=== PATIENT | female | born 1970 | race Caucasian/White ===

== ENCOUNTER 2016-10-06 10:43 | Inpatient (IN) | payer OTHER ==
[~2016-10-06] VITALS: Ht 162.6 cm; Wt 59.0 kg
--- NOTE | ~2016-10-06 | H ---
[facility] [place] [address] [place] [address] HISTORY AND PHYSICAL Name: TOMI LAUGHLIN Room #: 435-P [facility] IN M.R.#: [id number] Admission: 10/06/16 Attend Phys: Serjio Damon MD Discharge: 10/07/16 Date of : 70 Report #: [id number] THIS REPORT FOR: //name// CC: SHAHNAZ physician/PCP Serjio Damon DATE OF SERVICE: 10/06/2016 CHIEF COMPLAINT: Alcoholism, alcohol withdrawal. HISTORY OF PRESENT ILLNESS: The patient is a 46-year-old alcoholic female, with no major health problems, who comes to the hospital with alcohol withdrawal symptoms. The patient states that she is trying to quit. Her last drink was yesterday, and alcohol level is still over 200. The patient has mild tremors, and mild palpitations. The patient has been hospitalized several times for alcohol withdrawal before, most recently a few months ago. She denies alcohol-related seizures. The patient has been hemodynamically stable in the Emergency Room. She is found to have urinary tract infection. Her drug screen has been negative. Otherwise, her evaluation was unremarkable. PAST MEDICAL HISTORY: 1. Alcoholism as above. 2. History of acute pancreatitis. CURRENT MEDICATIONS: None. FAMILY HISTORY: Reviewed and not pertinent to the patient's current condition. SOCIAL HISTORY: The patient lives by herself. She drinks alcohol, mostly whiskey. She occasionally drinks alcohol. She denies illicit drug use. REVIEW OF SYSTEMS: As above in HPI section. All others negative. PHYSICAL EXAMINATION: GENERAL: The patient is a young female, who looks anxious now. VITAL SIGNS: Blood pressure is 129/74, heart rate is , respirations 14 and temperature is reported febrile. HEENT: Pupils are equal. Eye movements are normal. Sclerae are anicteric. Oral mucosa is moist. Ear examination is deferred. The patient is bruised on the right face, as a result of a fall. RESPIRATORY: Chest moves symmetrically with breathing. Respiratory sounds are normal. CARDIOVASCULAR: The patient has regular rhythm and rate. She has no murmurs, gallops or rubs. [facility] [address] [place] [address] HISTORY AND PHYSICAL Name: TOMI LAUGHLIN Room #: 435-P [facility] IN ..#: [id number] Admission: 10/06/16 Attend Phys: Serjio Damon MD Discharge: 10/07/16 Date of : 70 Report #: [id number] GASTROINTESTINAL: Abdomen is soft, nondistended and nontender. Bowel sounds are present. The patient has no hepatomegaly or splenomegaly. MUSCULOSKELETAL:. Range of motion is normal. EXTREMITIES: She has no edema, cyanosis or clubbing. NEUROLOGIC: The patient is alert and oriented x 3. Her examination is nonfocal. The patient has mild tremors in the hands. SKIN: Reveals no skin lesions, except the facial bruising. LABORATORY DATA: CBC is unremarkable except for the platelet levels of 89. Metabolic profile is essentially normal. Alcohol level is 221. ASSESSMENT AND PLAN: 1. Chronic alcoholism, in pending alcohol withdrawal. The patient will be placed on the alcohol withdrawal protocol, and she will be monitored closely. 2. Urinary tract infection. The patient will be treated with Rocephin. Urine culture will be submitted. 3. Deep venous thrombosis prophylaxis. We will use sequential compression devices. <ELECTRONICALLY SIGNED> By: Serjio Damon MD 10/10/162031 171 11 Sejrio Damon MD /nt
--- NOTE | ~2016-10-06 | D ---
[facility] [place] [address] [place] [address] DISCHARGE SUMMARY Name: TOMI LAUGHLIN Room #: 435-P [facility] IN M.R.#: [id number] Admission: 10/06/16 Attend Phys: Serjio Damon MD Discharge: 10/07/16 Date of : 70 Report #: [id number] THIS REPORT FOR: //name// CC: SHAHNAZ physician/PCP Serjio Damon DATE OF SERVICE: 10/07/2016 The patient left AMA on 10/07/2016. HOSPITAL COURSE: The patient is a 46-year-old female who was admitted to the hospital for alcohol withdrawal. Please refer to the H and P for details. Before I made rounds today, I was notified by nursing staff that the patient left AMA. The patient has been alert, awake and oriented times 3, and she is well aware of the complications related to alcoholism and alcohol withdrawal. <ELECTRONICALLY SIGNED> By: Serjio Damon MD 10/10/16 2032 [id number] [id number] Serjio Damon MD /nt
[~2016-10-06 10:43] MED LIST: ABILIFY10 MG PO; ATIVAN0.5 MG PO; BACTRIM DS TAB1 EACH PO; BARACLUDE0.5 MG; CHLORDIAZEPO-A1 EACH PO; CHLORDIAZEPOXID10 MG PO; CIPRO500 MG PO; CIPROFLOXACIN500 M1 PO; DESYREL50 MG PO; KLOR-CON 1010 MEQ PO; MIRALAX17 GM PO; ONDANSETRON HCL4 M2 PO; PHENERGAN 25 MG25 M1 PO; POTASSIUM20 PO; PRISTIQ50 M1 PO; REVIA 50 MG TAB50 M1; SENNA S TABLET1 EACH PO; SLOW-MAG64 MG PO; ZOFRAN ODT4 MG PO
[2016-10-06 11:15] LABS: ABSOLUTE NEUTROPHILS 4.9 thou/uL (1.4-8.2); BASOPHILS 0.8 % (0.0-2.0); EOSINOPHILS 0.1 % (0.0-3.0); HEMATOCRIT 41.3 % (37.0-47.0); HEMOGLOBIN 14.3 gm/dL (12.0-15.0); LYMPHOCYTES 29.3 % (24.0-44.0); MCH 33.1 pg (26.0-34.0); MCHC 34.6 % (28.0-37.0); MCV 95.6 fL (80.0-100.0); MONOCYTES 4.4 % (1.0-8.0); POLYS 65.4 % (36.0-66.0); RBC 4.32 mil/uL (4.20-5.00); RDW 15.8 % (10.5-14.5); WBC 7.4 thou/uL (4.0-11.0)
[2016-10-06 11:19] LABS: ANION GAP 22 mmol/L (7-16); BUN 12 mg/dL (7-18); CALCIUM 8.6 mg/dL (8.5-10.1); CHLORIDE 92 mmol/L (98-107); CO2 21 mmol/L (21-32); CREATININE 0.9 mg/dL (0.6-1.3); GLUCOSE 73 mg/dL (70-99); MANUAL DIFF NO; POTASSIUM 4.1 mmol/L (3.5-5.1); SODIUM 135 mmol/L (136-145)
[2016-10-06 11:25] LABS: ALBUMIN 3.9 g/dL (3.4-5.0); ALKALINE PHOSPHATASE 55 U/L (46-116); SALICYLATE 3.8 mg/dL (2.8-20.0); SGOT 151 U/L (15-37); SGPT 56 U/L (30-65); TOTAL BILIRUBIN 0.9 mg/dL (<0.1-1.0); TOTAL PROTEIN 7.2 g/dL (6.4-8.2)
[2016-10-06 11:28] LABS: ACETAMINOPHEN < 2 ug/mL (10-30)
[2016-10-06 11:33] LABS: PLATELET COUNT 89 thou/uL (150-400); PLATELET ESTIMATE SLIGHTLY DECREASED
[2016-10-06 11:34] LABS: LARGE PLATELETS OCCASIONAL
[2016-10-06 12:34] LABS: URINE BLOOD 2+ (Negative); URINE COLOR YELLOW; URINE GLUCOSE-RANDOM* NEGATIVE (Negative); URINE KETONES 2+ (Negative); URINE NITRITE NEGATIVE (Negative); URINE PROTEIN (DIPSTICK) 1+ (Negative); URINE SPECIFIC GRAVITY 1.025 (1.003-1.035); URINE UROBILINOGEN 0.2 E.U./dl (0.2-1.0)
[2016-10-06 12:38] LABS: ICTOTEST (BILI CONFIRMATORY) Negative (Negative); URINE BILIRUBIN NEGATIVE (Negative)
[2016-10-06 12:46] LABS: BACTERIA 1-9 Few /HPF (None Seen); CASTS None Seen /LPF (None Seen); CRYSTALS None Seen /LPF (None Seen); SQUAMOUS 0-3 Few /LPF (0-3); URINE RBC 3-10 Few /HPF (0-2); URINE WBC None Seen /HPF (0-5)
[2016-10-06 12:47] LABS: AMP/METHAMP Negative (Negative); BARBITURATES Negative (Negative); BENZODIAZEPINES Negative (Negative); COCAINE Negative (Negative); METHADONE Negative (Negative); OPIATES Negative (Negative); PCP Negative (Negative); THC Negative (Negative)
[2016-10-06 15:53] VITALS: BP 129/74
[2016-10-06 16:45] VITALS: BP 124/67
[2016-10-06 19:14] VITALS: BP 112/63
[2016-10-07 00:10] VITALS: BP 116/72
[2016-10-07 02:56] VITALS: BP 126/72
[2016-10-07 04:02] LABS: ABSOLUTE NEUTROPHILS 5.3 thou/uL (1.4-8.2); BASOPHILS 0.4 % (0.0-2.0); EOSINOPHILS 0.3 % (0.0-3.0); HEMATOCRIT 33.8 % (37.0-47.0); LYMPHOCYTES 24.7 % (24.0-44.0); MCH 33.1 pg (26.0-34.0); MCV 97.3 fL (80.0-100.0); MONOCYTES 5.4 % (1.0-8.0); POLYS 69.2 % (36.0-66.0); RBC 3.48 mil/uL (4.20-5.00); RDW 15.1 % (10.5-14.5); WBC 7.6 thou/uL (4.0-11.0)
[2016-10-07 04:09] LABS: HEMOGLOBIN 11.5 gm/dL (12.0-15.0)
[2016-10-07 04:10] LABS: MANUAL DIFF NO
[2016-10-07 04:14] LABS: CALCIUM 8.4 mg/dL (8.5-10.1); CREATININE 0.7 mg/dL (0.6-1.3)
[2016-10-07 04:23] LABS: POTASSIUM 2.9 mmol/L (3.5-5.1)
[2016-10-07 04:58] LABS: PLATELET COUNT 57 thou/uL (150-400); PLATELET ESTIMATE DECREASED
== END 2016-10-07 09:07 | disposition left against medical advice (07) | DRG 894 ==
LOC: ER 10:43 → EROBS 13:11 → 4S 15:56
PROVIDERS: Emergency Medicine; Internal Medicine Endocrinology, Diabetes & Metabolism
DX: F10.239 Alcohol dependence with withdrawal, unspecified (principal); N39.0 Urinary tract infection, site not specified; F17.210 Nicotine dependence, cigarettes, uncomplicated; Y90.7 Blood alcohol level of 200-239 mg/100 ml; Z88.6 Allergy status to analgesic agent; Z90.49 Acquired absence of other specified parts of digestive tract
CPT/HCPCS: 10195

== ENCOUNTER 2017-01-28 12:26 | Inpatient (IN) | payer OTHER ==
[~2017-01-28] VITALS: Ht 162.6 cm; Wt 46.5 kg
[2017-01-28 12:26] VITALS: BP 136/89
[2017-01-28 13:18] LABS: ABSOLUTE NEUTROPHILS 2.8 thou/uL (1.4-8.2); BASOPHILS 1.4 % (0.0-2.0); EOSINOPHILS 0.2 % (0.0-3.0); HEMATOCRIT 38.9 % (37.0-47.0); HEMOGLOBIN 13.1 gm/dL (12.0-15.0); LYMPHOCYTES 18.2 % (24.0-44.0); MCHC 33.5 g/dL (28.0-37.0); MCV 98.5 fL (80.0-100.0); MONOCYTES 6.9 % (1.0-8.0); POLYS 73.3 % (36.0-66.0); RBC 3.95 mil/uL (4.20-5.00); RDW 20.7 % (10.5-14.5); WBC 3.9 thou/uL (4.0-11.0)
[2017-01-28 13:19] LABS: MANUAL DIFF NO
[2017-01-28 13:47] LABS: PLATELET COUNT 62 thou/uL (150-400)
[2017-01-28 14:50] LABS: CREATININE 0.5 mg/dL (0.6-1.0)
[2017-01-28 14:53] LABS: MAGNESIUM 0.9 mg/dL (1.8-2.4); POTASSIUM 2.9 mmol/L (3.5-5.1)
[2017-01-28 16:34] LABS: AMP/METHAMP Negative (Negative); BARBITURATES Negative (Negative); BENZODIAZEPINES Negative (Negative); COCAINE Negative (Negative); METHADONE Negative (Negative); OPIATES Negative (Negative); PCP Negative (Negative); THC Negative (Negative)
[2017-01-28 17:44] VITALS: BP 144/74
[2017-01-28 18:11] VITALS: BP 136/86
[2017-01-28 19:55] VITALS: BP 153/81
[2017-01-28 21:06] LABS: FREE T4 0.93 ng/dL (0.82-1.77)
[2017-01-28 23:35] VITALS: BP 121/87
[2017-01-29 04:25] VITALS: BP 141/91
[2017-01-29 06:15] LABS: CALCIUM 8.5 mg/dL (8.5-10.1); CREATININE 0.6 mg/dL (0.6-1.0); POTASSIUM 3.4 mmol/L (3.5-5.1)
[2017-01-29 06:20] LABS: ALBUMIN 3.5 g/dL (3.4-5.0); MAGNESIUM 1.6 mg/dL (1.8-2.4); TOTAL BILIRUBIN 1.1 mg/dL (<0.1-1.0); TOTAL PROTEIN 6.4 g/dL (6.4-8.2)
[2017-01-29 08:13] VITALS: BP 125/83
[2017-01-29 16:53] VITALS: BP 130/75
[2017-01-29 19:55] VITALS: BP 145/107
[2017-01-30 04:48] VITALS: BP 158/111
[2017-01-30 07:44] VITALS: BP 149/102
== END 2017-01-30 08:14 | disposition left against medical advice (07) | DRG 894 ==
LOC: ER 12:26 → 4W 15:11 → EROBS 15:11 → 4W 17:51
PROVIDERS: Emergency Medicine; Hospitalist
DX: F10.239 Alcohol dependence with withdrawal, unspecified (principal); E43 Unspecified severe protein-calorie malnutrition; K76.6 Portal hypertension; Z68.1 Body mass index [BMI] 19.9 or less, adult; F17.210 Nicotine dependence, cigarettes, uncomplicated; E87.6 Hypokalemia; E83.42 Hypomagnesemia; F10.229 Alcohol dependence with intoxication, unspecified; Y90.3 Blood alcohol level of 60-79 mg/100 ml; K74.60 Unspecified cirrhosis of liver; D69.6 Thrombocytopenia, unspecified; Z53.21 Procedure and treatment not carried out due to patient leaving prior to being seen by health care provider; F41.9 Anxiety disorder, unspecified; F32.9 Major depressive disorder, single episode, unspecified; Z88.6 Allergy status to analgesic agent; Z90.49 Acquired absence of other specified parts of digestive tract
CPT/HCPCS: 10045

== ENCOUNTER 2017-03-14 03:13 | Emergency (ER) | payer OTHER ==
[~2017-03-14] VITALS: Ht 162.6 cm; Wt 54.0 kg
[2017-03-14 04:35] LABS: HEMATOCRIT 33.1 % (37.0-47.0); HEMOGLOBIN 11.4 gm/dL (12.0-15.0); MCHC 34.3 g/dL (28.0-37.0); RBC 3.16 mil/uL (4.20-5.00); RDW 18.5 % (10.5-14.5); WBC 3.8 thou/uL (4.0-11.0)
[2017-03-14 04:45] LABS: CALCIUM 9.5 mg/dL (8.5-10.1); CREATININE 0.7 mg/dL (0.6-1.0)
[2017-03-14 04:46] LABS: POTASSIUM 2.6 mmol/L (3.5-5.1)
[2017-03-14 05:06] LABS: AMP/METHAMP Negative (Negative); BARBITURATES Negative (Negative); BENZODIAZEPINES Negative (Negative); COCAINE Negative (Negative); METHADONE Negative (Negative); OPIATES Negative (Negative); PCP Negative (Negative); THC Negative (Negative)
== END 2017-03-14 09:57 | disposition home or self-care (01) ==
LOC: ER 03:13
PROVIDERS: Emergency Medicine
DX: F31.9 Bipolar disorder, unspecified (principal); F10.121 Alcohol abuse with intoxication delirium; F17.210 Nicotine dependence, cigarettes, uncomplicated; Z90.49 Acquired absence of other specified parts of digestive tract; Z88.5 Allergy status to narcotic agent; Y90.9 Presence of alcohol in blood, level not specified

== ENCOUNTER 2017-05-21 09:04 | Inpatient (IN) | payer OTHER ==
[~2017-05-21] VITALS: Ht 162.6 cm; Wt 54.4 kg
[2017-05-21] VITALS (7 sets, daily range): BP systolic 114–158; BP diastolic 66–89
[2017-05-21 09:31] LABS: HEMOGLOBIN 15.4 gm/dL (12.0-15.0); MCH 33.2 pg (26.0-34.0); MCHC 35.1 g/dL (28.0-37.0); MCV 94.6 fL (80.0-100.0); PLATELET COUNT 189 thou/uL (150-400); RBC 4.65 mil/uL (4.20-5.00); RDW 14.5 % (10.5-14.5); WBC 10.8 thou/uL (4.0-11.0)
[2017-05-21 09:34] LABS: MANUAL DIFF YES
[2017-05-21 09:54] LABS: CALCIUM 9.1 mg/dL (8.5-10.1); CREATININE 0.8 mg/dL (0.6-1.0); POTASSIUM 3.7 mmol/L (3.5-5.1)
[2017-05-21 09:59] LABS: MAGNESIUM 1.1 mg/dL (1.8-2.4); TOTAL BILIRUBIN 1.3 mg/dL (<0.1-1.0)
[2017-05-21 10:05] LABS: ABSOLUTE NEUTROPHILS 9.3 thou/uL (1.4-8.2); PLATELET ESTIMATE NORMAL; TOTAL CELL COUNT 100
[2017-05-21 10:20] LABS: URINE BILIRUBIN NEGATIVE (Negative); URINE BLOOD TRACE (Negative); URINE COLOR YELLOW; URINE GLUCOSE-RANDOM* NEGATIVE (Negative); URINE KETONES 1+ (Negative); URINE LEUKOCYTES-REFLEX NEGATIVE (Negative); URINE PROTEIN (DIPSTICK) TRACE (Negative); URINE SPECIFIC GRAVITY >= 1.030 (1.003-1.035); URINE UROBILINOGEN 0.2 E.U./dl (0.2-1.0)
[2017-05-21 10:28] LABS: AMP/METHAMP Negative (Negative); BARBITURATES Negative (Negative); BENZODIAZEPINES Negative (Negative); COCAINE Negative (Negative); METHADONE Negative (Negative); OPIATES Negative (Negative); PCP Negative (Negative); THC Negative (Negative)
[2017-05-21 12:16] LABS: PHOSPHORUS 5.7 mg/dL (2.5-4.9)
[2017-05-21 13:06] LABS: FOLIC ACID 3.6 ng/mL (8.6-58.9)
[2017-05-21 18:07] LABS: FREE T4 0.84 ng/dL (0.82-1.77)
[2017-05-22 04:10] VITALS: BP 129/79
[2017-05-22 06:17] LABS: ABSOLUTE NEUTROPHILS 3.8 thou/uL (1.4-8.2); BASOPHILS 0.4 % (0.0-2.0); HEMATOCRIT 32.8 % (37.0-47.0); LYMPHOCYTES 27.8 % (24.0-44.0); MCH 33.2 pg (26.0-34.0); MCHC 35.1 g/dL (28.0-37.0); MCV 94.7 fL (80.0-100.0); MONOCYTES 3.2 % (1.0-8.0); POLYS 66.6 % (36.0-66.0); RBC 3.47 mil/uL (4.20-5.00); RDW 14.5 % (10.5-14.5); WBC 5.8 thou/uL (4.0-11.0)
[2017-05-22 06:24] LABS: HEMOGLOBIN 11.5 gm/dL (12.0-15.0); MANUAL DIFF NO
[2017-05-22 06:42] LABS: CALCIUM 8.8 mg/dL (8.5-10.1); CREATININE 0.5 mg/dL (0.6-1.0)
[2017-05-22 08:00] VITALS: BP 132/90
[2017-05-22 08:12] LABS: PLATELET COUNT 97 thou/uL (150-400)
[2017-05-22] MEDS ORDERED: MAGOX 400400 MG PO (12:09)
[2017-05-22] MEDS ORDERED: FOLIC ACID1 MG PO (12:09)
[2017-05-22 12:42] VITALS: BP 132/90
== END 2017-05-22 13:44 | disposition home or self-care (01) | DRG 897 ==
LOC: ER 09:04 → 4S 10:45 → EROBS 10:45 → 4S 12:19
PROVIDERS: Emergency Medicine; Family Medicine
DX: F10.230 Alcohol dependence with withdrawal, uncomplicated (principal); K70.30 Alcoholic cirrhosis of liver without ascites; Y90.9 Presence of alcohol in blood, level not specified; F17.210 Nicotine dependence, cigarettes, uncomplicated; E86.0 Dehydration; D72.825 Bandemia; F10.229 Alcohol dependence with intoxication, unspecified; Z90.49 Acquired absence of other specified parts of digestive tract; Z94.89 Other transplanted organ and tissue status; Z88.6 Allergy status to analgesic agent; Z81.1 Family history of alcohol abuse and dependence
CPT/HCPCS: 10100

== ENCOUNTER 2017-06-05 07:21 | Emergency (ER) | payer OTHER ==
[~2017-06-05] VITALS: Ht 162.6 cm; Wt 54.4 kg
[~2017-06-05 07:21] MED LIST changes: +FOLIC ACID1 MG PO; +MAGOX 400400 MG PO
[2017-06-05 08:13] LABS: HEMATOCRIT 45.5 % (37.0-47.0); HEMOGLOBIN 15.3 gm/dL (12.0-15.0); MCH 32.6 pg (26.0-34.0); MCHC 33.7 g/dL (28.0-37.0); MCV 96.7 fL (80.0-100.0); RBC 4.7 mil/uL (4.20-5.00); RDW 15.9 % (10.5-14.5); WBC 8.1 thou/uL (4.0-11.0)
[2017-06-05 08:18] LABS: PROTIME 10.3 Seconds (9.3-11.4)
[2017-06-05 08:37] LABS: CALCIUM 8.3 mg/dL (8.5-10.1); CREATININE 0.8 mg/dL (0.6-1.0); POTASSIUM 3.9 mmol/L (3.5-5.1)
[2017-06-05 08:43] LABS: ALBUMIN 3.4 g/dL (3.4-5.0); TOTAL BILIRUBIN 0.4 mg/dL (<0.1-1.0); TOTAL PROTEIN 7.1 g/dL (6.4-8.2)
== END 2017-06-05 09:37 | disposition home or self-care (01) ==
LOC: ER 07:21
PROVIDERS: Emergency Medicine
DX: F10.10 Alcohol abuse, uncomplicated (principal); F41.9 Anxiety disorder, unspecified; F17.210 Nicotine dependence, cigarettes, uncomplicated; Z90.49 Acquired absence of other specified parts of digestive tract; Z88.5 Allergy status to narcotic agent

== ENCOUNTER 2017-09-21 16:53 | Emergency (ER) | payer OTHER ==
[~2017-09-21] VITALS: Ht 162.6 cm; Wt 56.7 kg
[2017-09-21 17:45] LABS: CALCIUM 9.2 mg/dL (8.5-10.1); CREATININE 0.7 mg/dL (0.6-1.0); POTASSIUM 3.5 mmol/L (3.5-5.1)
[2017-09-21 18:05] LABS: ABSOLUTE NEUTROPHILS 3.3 thou/uL (1.4-8.2); BASOPHILS 1.2 % (0.0-2.0); HEMATOCRIT 42.2 % (37.0-47.0); HEMOGLOBIN 14.3 gm/dL (12.0-15.0); MCH 31.6 pg (26.0-34.0); MCV 93.1 fL (80.0-100.0); MONOCYTES 5.4 % (1.0-8.0); PLATELET COUNT 254 thou/uL (150-400); POLYS 52.4 % (36.0-66.0); RBC 4.54 mil/uL (4.20-5.00); RDW 14.9 % (10.5-14.5); WBC 6.4 thou/uL (4.0-11.0)
[2017-09-21] MEDS ORDERED: ZOFRAN ODT8 MG PO (23:17)
[2017-09-21] MEDS ORDERED: ATIVAN2 MG PO (23:17)
[2017-09-22 00:50] VITALS: BP 116/80
[2018-02-06] MEDS ORDERED: TESSALON PERLE100 MG PO (17:13)
== END 2017-09-22 00:51 | disposition home or self-care (01) ==
LOC: ER 16:53
PROVIDERS: Emergency Medicine
DX: F10.230 Alcohol dependence with withdrawal, uncomplicated (principal); F17.210 Nicotine dependence, cigarettes, uncomplicated; Z88.5 Allergy status to narcotic agent

== ENCOUNTER 2018-04-16 21:36 | Emergency (ER) | payer OTHER ==
[~2018-04-16] VITALS: Ht 160 cm; Wt 54.4 kg
[~2018-04-16 21:36] MED LIST changes: +ATIVAN2 MG PO; +TESSALON PERLE100 MG PO; +ZOFRAN ODT8 MG PO
[2018-04-16 22:28] LABS: HEMATOCRIT 41.4 % (37.0-47.0); HEMOGLOBIN 14.3 gm/dL (12.0-15.0); MCH 31.2 pg (26.0-34.0); MCHC 34.6 g/dL (28.0-37.0); MCV 90.3 fL (80.0-100.0); RBC 4.59 mil/uL (4.20-5.00); RDW 17.1 % (10.5-14.5); WBC 9.5 thou/uL (4.0-11.0)
[2018-04-16 22:37] LABS: CALCIUM 8.2 mg/dL (8.5-10.1); CREATININE 0.9 mg/dL (0.6-1.0); POTASSIUM 4.1 mmol/L (3.5-5.1)
== END 2018-04-17 00:10 | disposition home or self-care (01) ==
LOC: ER 21:36
PROVIDERS: Physician Assistant
DX: F10.10 Alcohol abuse, uncomplicated (principal); F17.210 Nicotine dependence, cigarettes, uncomplicated; Z88.5 Allergy status to narcotic agent; Y90.0 Blood alcohol level of less than 20 mg/100 ml

== ENCOUNTER 2018-04-24 11:35 | Emergency (ER) | payer OTHER ==
[~2018-04-24] VITALS: Ht 160 cm; Wt 54.4 kg
[2018-04-24 12:18] LABS: HEMATOCRIT 39.7 % (37.0-47.0); HEMOGLOBIN 13.7 gm/dL (12.0-15.0); MCH 31.4 pg (26.0-34.0); MCHC 34.6 g/dL (28.0-37.0); MCV 90.9 fL (80.0-100.0); RBC 4.36 mil/uL (4.20-5.00); RDW 17.9 % (10.5-14.5); WBC 6.7 thou/uL (4.0-11.0)
[2018-04-24 12:52] LABS: ALBUMIN 3.4 g/dL (3.4-5.0); CALCIUM 8.2 mg/dL (8.5-10.1); CREATININE 0.7 mg/dL (0.6-1.0); TOTAL BILIRUBIN 0.6 mg/dL (<0.1-1.0); TOTAL PROTEIN 6.8 g/dL (6.4-8.2)
[2018-04-24 17:13] LABS: URINE BILIRUBIN NEGATIVE (Negative); URINE BLOOD NEGATIVE (Negative); URINE CLARITY CLEAR; URINE COLOR YELLOW; URINE GLUCOSE-RANDOM* NEGATIVE (Negative); URINE KETONES 1+ (Negative); URINE NITRITE-REFLEX NEGATIVE (Negative); URINE PROTEIN (DIPSTICK) TRACE (Negative); URINE UROBILINOGEN 0.2 E.U./dl (0.2-1.0)
[2018-04-24 17:14] LABS: URINE LEUKOCYTES-REFLEX 1+ (Negative)
[2018-04-24 17:22] LABS: AMP/METHAMP Negative (Negative); BARBITURATES Negative (Negative); BENZODIAZEPINES Negative (Negative); COCAINE Negative (Negative); METHADONE Negative (Negative); OPIATES Negative (Negative); PCP Negative (Negative)
[2018-04-24 17:25] LABS: CASTS None Seen /LPF (None Seen); CRYSTALS None Seen /LPF (None Seen); SQUAMOUS 0-3 Few /LPF (0-3)
[2018-04-24 17:26] LABS: BACTERIA-REFLEX 1-9 Few /HPF (None Seen); URINE RBC None Seen /HPF (0-2); URINE WBC-REFLEX 0-5 Rare /HPF (0-5)
== END 2018-04-24 16:10 | disposition home or self-care (01) ==
LOC: ER 11:35
PROVIDERS: Student in an Organized Health Care Education/Training Program
DX: F10.129 Alcohol abuse with intoxication, unspecified (principal); R11.2 Nausea with vomiting, unspecified; F17.210 Nicotine dependence, cigarettes, uncomplicated; Z88.5 Allergy status to narcotic agent; Y90.0 Blood alcohol level of less than 20 mg/100 ml

== ENCOUNTER 2018-09-25 09:54 | Inpatient (IN) | payer OTHER ==
[~2018-09-25] VITALS: Ht 160 cm; Wt 58.1 kg
[2018-09-25 09:55] VITALS: BP 107/73
[2018-09-25 10:24] LABS: HEMATOCRIT 46.5 % (37.0-47.0); HEMOGLOBIN 16.1 gm/dL (12.0-15.0); MCH 31.6 pg (26.0-34.0); MCHC 34.6 g/dL (28.0-37.0); MCV 91.3 fL (80.0-100.0); RBC 5.09 mil/uL (4.20-5.00); RDW 16.8 % (10.5-14.5); WBC 5.9 thou/uL (4.0-11.0)
[2018-09-25 10:33] LABS: CREATININE 0.8 mg/dL (0.6-1.0); POTASSIUM 3.8 mmol/L (3.5-5.1)
[2018-09-25 10:38] LABS: ALBUMIN 4.3 g/dL (3.4-5.0); MAGNESIUM 1.9 mg/dL (1.8-2.4); TOTAL BILIRUBIN 0.5 mg/dL (<0.1-1.0); TOTAL PROTEIN 8.1 g/dL (6.4-8.2)
[2018-09-25 11:51] LABS: URINE BILIRUBIN NEGATIVE (Negative); URINE CLARITY CLEAR; URINE COLOR YELLOW; URINE GLUCOSE-RANDOM* 1+ (Negative); URINE KETONES TRACE (Negative); URINE PROTEIN (DIPSTICK) TRACE (Negative)
[2018-09-25 11:52] LABS: ICTOTEST (BILI CONFIRMATORY) Negative (Negative); URINE BLOOD NEGATIVE (Negative); URINE LEUKOCYTES-REFLEX NEGATIVE (Negative); URINE NITRITE-REFLEX NEGATIVE (Negative); URINE UROBILINOGEN 0.2 E.U./dl (0.2-1.0)
[2018-09-25 11:57] LABS: AMP/METHAMP Negative (Negative); BARBITURATES Negative (Negative); BENZODIAZEPINES Negative (Negative); COCAINE Negative (Negative); METHADONE Negative (Negative); OPIATES Negative (Negative); PCP Negative (Negative)
[2018-09-25 13:11] VITALS: BP 119/79
[2018-09-25 14:30] VITALS: BP 127/76
[2018-09-25 17:40] VITALS: BP 126/79
--- NOTE | 2018-09-25 17:45 | NUR ---
PT ADMITED FROM ER FOR ETOH. SCORED 9-10 ON CIWA. PRN ATIVAN GIVEN. ADMISSION HX AND ASSESSMENT COMPLETED WITH THE HELP FROM HER FRIEND. PRN TYLENOL GIVEN FOR [place]. ST ON TELI. FALL PRECAUTION IMPLEMENTED. WILL CONTINUE TO MONITOR.
[2018-09-25 19:12] VITALS: BP 129/82
[2018-09-26 00:26] VITALS: BP 139/94
[2018-09-26 04:39] LABS: MCH 30.6 pg (26.0-34.0); MCHC 32.9 g/dL (28.0-37.0); MCV 93.1 fL (80.0-100.0); RBC 3.97 mil/uL (4.20-5.00); RDW 16.5 % (10.5-14.5); WBC 7.2 thou/uL (4.0-11.0)
[2018-09-26 04:41] LABS: CALCIUM 9.1 mg/dL (8.5-10.1); CREATININE 0.7 mg/dL (0.6-1.0); POTASSIUM 3.6 mmol/L (3.5-5.1)
[2018-09-26 04:43] LABS: HEMOGLOBIN 12.1 gm/dL (12.0-15.0)
[2018-09-26 05:07] VITALS: BP 145/97
--- NOTE | 2018-09-26 05:33 | NUR ---
ASSUMED PT CARE AT 1900 WITH PT SLEEPING, PT IS STABLE AT THIS TIME. NO SIGN OF DISTRESS NOTED BUT HEART RATE WAS ELEVATED, PT IS IN ETOH WITHDRAWAL AND CIWA PROTOCOL COMPLETED, PT IS STABLE DURING THE NIGHT, SCHEDULED MEDS ADMINISTERED. NO FURTHER SIGN OF DISTRESS NOTED IN PT.
[2018-09-26 07:25] VITALS: BP 154/82
[2018-09-26 11:10] VITALS: BP 142/94
[2018-09-26 15:10] VITALS: BP 137/93
--- NOTE | 2018-09-26 17:18 | NUR ---
ASSESSMENT DOCUMENTED. VSS. SR TO ST ON TELI. ON CIWA PROTOCAL. RECEIVED PRN ATIVAN FOR ANXIETY. UP IN THE CHAIR THIS SHIFT. CHECKED FREQUENTLY AND NEEDS MET. WILL CONTINUE TO MONITOR.
[2018-09-26 19:29] VITALS: BP 141/89
[2018-09-27 04:47] VITALS: BP 146/94
--- NOTE | 2018-09-27 05:35 | NUR ---
ASSUMED PT CARE AT 1900 WITH NO SIGN OF DISTRESS NOTED IN PT, PT IS ALERT AND ORIENTED WITH NO SIGN OF DISTRESS NOTED IN PT, PT IS STABLE, CIWA PROTOCOL IS DONE AND PT IS STABLE ON CIWA PROTOCOL. SCHEDULED MEDS ADMINISTERED, ASSESSMENT COMPLETEDD, DENIES ANY FURTHER NEEDS AT THIS TIME
[2018-09-27 05:58] LABS: HEMOGLOBIN 13.2 gm/dL (12.0-15.0); MCH 30.2 pg (26.0-34.0); MCHC 33.1 g/dL (28.0-37.0); MCV 91.2 fL (80.0-100.0); PLATELET COUNT 95 thou/uL (150-400); RBC 4.38 mil/uL (4.20-5.00); RDW 15.9 % (10.5-14.5); WBC 5.9 thou/uL (4.0-11.0)
[2018-09-27 06:15] LABS: ALBUMIN 3.9 g/dL (3.4-5.0); CALCIUM 9.4 mg/dL (8.5-10.1); CREATININE 0.7 mg/dL (0.6-1.0); POTASSIUM 3.4 mmol/L (3.5-5.1); TOTAL BILIRUBIN 1.1 mg/dL (<0.1-1.0); TOTAL PROTEIN 7.6 g/dL (6.4-8.2)
[2018-09-27 06:31] LABS: ABSOLUTE NEUTROPHILS 3.9 thou/uL (1.4-8.2); PLATELET ESTIMATE DECREASED
--- NOTE | 2018-09-27 07:09 | NUR ---
pt stated that she wanted to leave the hospital without discharge, it was explained that she would be leaving AMA and she verbalized understanding. tar distillation supervisor Clau, Nurse Practitioner Queta WALKER, and security notified about pt's AMA. IV discontinued .
== END 2018-09-27 06:45 | disposition left against medical advice (07) | DRG 894 ==
LOC: ER 09:54 → EROBS 11:11 → 2N 14:05
PROVIDERS: Emergency Medicine; ADMIT Hospitalist
DX: F10.129 Alcohol abuse with intoxication, unspecified (principal); R74.0 Nonspecific elevation of levels of transaminase and lactic acid dehydrogenase [LDH]; F41.9 Anxiety disorder, unspecified; F17.210 Nicotine dependence, cigarettes, uncomplicated; Z53.21 Procedure and treatment not carried out due to patient leaving prior to being seen by health care provider; Z90.49 Acquired absence of other specified parts of digestive tract; Z94.7 Corneal transplant status; Z88.5 Allergy status to narcotic agent
CPT/HCPCS: 10081

== ENCOUNTER 2018-10-29 16:41 | Emergency (ER) | payer OTHER ==
[2018-10-29 18:12] LABS: URINE BILIRUBIN NEGATIVE (Negative); URINE BLOOD TRACE (Negative); URINE CLARITY CLEAR; URINE COLOR YELLOW; URINE GLUCOSE-RANDOM* NEGATIVE (Negative); URINE KETONES NEGATIVE (Negative); URINE LEUKOCYTES-REFLEX NEGATIVE (Negative); URINE NITRITE-REFLEX NEGATIVE (Negative); URINE PROTEIN (DIPSTICK) NEGATIVE (Negative); URINE UROBILINOGEN 0.2 E.U./dl (0.2-1.0)
[2018-10-29 18:17] LABS: ABSOLUTE NEUTROPHILS 4.2 thou/uL (1.4-8.2); BASOPHILS 1.8 % (0.0-2.0); EOSINOPHILS 0.3 % (0.0-3.0); HEMATOCRIT 43.3 % (37.0-47.0); HEMOGLOBIN 15.3 gm/dL (12.0-15.0); LYMPHOCYTES 32.2 % (24.0-44.0); MCH 31.4 pg (26.0-34.0); MCHC 35.2 g/dL (28.0-37.0); MCV 89.1 fL (80.0-100.0); MONOCYTES 2.9 % (1.0-8.0); PLATELET COUNT 183 thou/uL (150-400); POLYS 62.8 % (36.0-66.0); RBC 4.86 mil/uL (4.20-5.00); RDW 16.5 % (10.5-14.5); WBC 6.6 thou/uL (4.0-11.0)
[2018-10-29 18:29] LABS: CALCIUM 9.4 mg/dL (8.5-10.1); CREATININE 0.6 mg/dL (0.6-1.0); POTASSIUM 3.9 mmol/L (3.5-5.1)
[2018-10-29 18:35] LABS: ALBUMIN 4.4 g/dL (3.4-5.0); TOTAL BILIRUBIN 0.4 mg/dL (<0.1-1.0); TOTAL PROTEIN 8.7 g/dL (6.4-8.2)
[2018-10-29 19:20] VITALS: BP 127/82
--- NOTE | 2018-10-30 09:41 | EKG ---
[place] [address] [facility] [place] [address] ELECTROCARDIOGRAM REPORT Name: TOMI LAUGHLIN [facility] [id number] Admission: 10/29/18 Attend Phys: Discharge: 10/29/18 Date of : 70 Report #: [id number] THIS REPORT FOR: //name// [facility] ED Test Date: 2018-10-29 Test Time: 17:13:42 Pat Name: TOMI LAUGHLIN Department: Room: Gender: F Clothing Room Supervisor: ROXANNE : 1970 Requested By: Yohannes Finley Order Number: [id number] MD: Edson Wynne Measurements Intervals [place] Rate: 86 P: 50 FL: 139 QRS: 56 QRSD: 88 T: 55 QT: 385 QTc: 461 Interpretive Statements Sinus rhythm No significant abnormality Compared to ECG 06/17/2018 02:15:06 Multifocal atrial tachycardia is no longer present Electronically Signed On 10-30-2018 9:41:08 AGRICULTURAL EXTENSION EDUCATOR by Edson Wynne [email or web address] <ELECTRONICALLY SIGNED> By: Edson Wynne MD, [facility] 10/30/18 0941 1713 1713 Edson Wynne MD, FACC /EPI
== END 2018-10-29 19:23 | disposition home or self-care (01) ==
LOC: ER 16:41
PROVIDERS: Emergency Medicine
DX: F10.239 Alcohol dependence with withdrawal, unspecified (principal); E86.0 Dehydration; F17.210 Nicotine dependence, cigarettes, uncomplicated; Z90.49 Acquired absence of other specified parts of digestive tract

== ENCOUNTER 2019-02-19 13:33 | Emergency (ER) | payer OTHER ==
[~2019-02-19] VITALS: Ht 160 cm; Wt 54.4 kg
[2019-02-19] MEDS ORDERED: CELEXA40 MG PO (14:13)
[2019-02-19 14:36] LABS: HEMATOCRIT 35.3 % (37.0-47.0); MCH 32.2 pg (26.0-34.0); MCHC 34.1 g/dL (28.0-37.0); MCV 94.5 fL (80.0-100.0); PLATELET COUNT 316 thou/uL (150-400); RBC 3.74 mil/uL (4.20-5.00); WBC 6.4 thou/uL (4.0-11.0)
[2019-02-19 14:53] LABS: ALBUMIN 3.2 g/dL (3.4-5.0); ANION GAP 8 mmol/L (7-16); BUN 4 mg/dL (7-18); CALCIUM 9.1 mg/dL (8.5-10.1); CHLORIDE 103 mmol/L (98-107); CO2 30 mmol/L (21-32); CREATININE 0.7 mg/dL (0.6-1.0); GLUCOSE 133 mg/dL (74-106); SGOT 24 U/L (15-37); SGPT 28 U/L (30-65); SODIUM 141 mmol/L (136-145); TOTAL BILIRUBIN 0.3 mg/dL (<0.1-1.0); TROPONIN-I <0.06 ng/mL (<0.06)
[2019-02-19 14:55] LABS: POTASSIUM 2.4 mmol/L (3.5-5.1)
[2019-02-19 14:56] LABS: ABSOLUTE NEUTROPHILS 4.4 thou/uL (1.4-8.2); ANISOCYTOSIS 1+; PLATELET ESTIMATE NORMAL
[2019-02-19] MEDS ORDERED: KLOR-CON 1010 MEQ PO (16:23)
[2019-02-19] MEDS ORDERED: MAG-OXIDE400 MG PO (16:23)
[2019-02-19 17:09] VITALS: BP 152/68
--- NOTE | 2019-02-20 09:27 | EKG ---
[place] [address] [employer] [place] [address] ELECTROCARDIOGRAM REPORT Name: TOMI LAUGHLIN [facility] [id number] ������������������ Admission: 02/19/19 ������������������ Attend Phys: Discharge: 02/19/19 ������������������ Date of : 70 Report #: [id number] ����������������������������������������������������������������� [id number] THIS REPORT FOR: //name// [facility] ED Test Date: 2019-02-19 Test Time: 13:38:41 Pat Name: TOMI LAUGHLIN Department: Room: Gender: F Terrazzo Worker: [place] : 1970 Requested By: Tee Ware Order Number: [id number] MD: Edson Wynne Measurements Intervals [place] Rate: 78 P: 10 DE: 154 QRS: 33 QRSD: 88 T: 20 QT: 381 QTc: 434 Interpretive Statements Sinus rhythm Normal tracing Compared to ECG 10/29/2018 17:13:42 No significant changes Electronically Signed On 02-20-2019 9:27:27 CDT by Edson Wynne [email or web address] ��������������������������������������������� <ELECTRONICALLY SIGNED> ���������������������������������������� By: Edson Wynne MD, [facility] ��������������������������������������������� 02/20/19 0927 1338 1338 Edson Wynne MD, FACC /EPI
== END 2019-02-19 17:10 | disposition home or self-care (01) ==
LOC: ER 13:33
PROVIDERS: Emergency Medicine
DX: R00.2 Palpitations (principal); E87.6 Hypokalemia; E83.42 Hypomagnesemia; F17.210 Nicotine dependence, cigarettes, uncomplicated; Z88.5 Allergy status to narcotic agent

== ENCOUNTER 2020-03-29 11:28 | Emergency (ER) | payer OTHER ==
[~2020-03-29] VITALS: Ht 162.6 cm; Wt 59.0 kg
--- NOTE | ~2020-03-29 | EMS ---
[address] [address] EMS Patient Care Report Name: TOMI LAUGHLIN Room #: REG ARLYN [facility]#: [id number] Admission: 03/29/20 Attend Phys: Discharge: Date of : 70 Report #: [id number] THIS REPORT FOR: //name// Report Transmitted: 03/29/2020 12:26 EMS Care Summary [place], [place]/[facility] Incident [id number] @ 03/29/2020 10:59 Incident Location [address] [place] [address] Patient TOMI LAUGHLIN Female, 49 Years 1970 Patient Address [address] [place] [address] Patient History Other,Anxiety,Deep Vein Thrombosis,Alcohol Abuse, Patient Allergies Codeine, Patient Medications Other, Eliquis, Chief Complaint Alcohol Dependence Disposition Transported No Lights/[place] Reason Overdose/Poisoning/Ingestion Transported To [facility] Narrative Dispatched to the scene of a 49 year old female interested in detox. Upon arrival, met patient at her front door. She stated she has been drinking for a couple of weeks and wants to detox safely and does not believe she will be able to do that at home. Patient was alert and oriented x4, GCS 15, and did not [address] [address] EMS Patient Care Report Name: TOMI LAUGHLIN Room #: REG [facility] [place]#: [id number] Admission: 03/29/20 Attend Phys: Discharge: Date of : 70 Report #: [id number] appear to be in any obvious distress. Patient was assisted into the ambulance and secured to the bench seat. An ALS assessment was performed and vitals were monitored. Patient stated she has been drinking about a 12 pack of beer per day for the last three weeks. Patient stated she has had one beer this morning. Patient is concerned about her ability to self-detox because she has just recently been prescribed blood thinners for bilateral PEs. Patient stated she had been feeling nauseated and been vomiting the last week. Patient stated about three minutes from the hospital that she was nauseated. Provided patient an oral zofran. Patient was reassessed and vitals were monitored en route to [facility]. Upon hospital arrival, patient stated she would prefer to walk on her own. Patient was escorted to her room, sat on the bed, bed rails were raised, and patient care was transferred to the receiving nurse. Initial Vitals @11:08P: 95,R: 16,BP: 153/88,Pain: 0/10,GCS: 15,Glucose: 86,SpO2: 97,Revised Trauma: 12, @11:18P: 101,R: 1,BP: 133/94,Pain: 0/10,GCS: 15,CO: 4,SpO2: 96,Revised Trauma: 9, Assessments @11:06MENTAL:Person Oriented,Time Oriented,Place Oriented,Event Oriented,SKIN:HEENT:Head/Face: No Abnormalities,Neck/Airway: No Abnormalities,LUNG SOUNDS:General: Vomiting,General: Nausea,ABDOMEN:General: Vomiting,General: Nausea,PELVIS//GI:No Abnormalities,EXTREMITIES:Capillary Refill: Right Upper: < 2 Sec,Left Arm: No Abnormalities,Right Arm: No Abnormalities,Left Leg: No Abnormalities,Right Leg: No Abnormalities,PULSE:Radial: 2+ Normal,NEURO:No Abnormalities,@11:16MENTAL:No Abnormalities,SKIN:No Abnormalities,HEENT:Head/Face: No Abnormalities,Eyes: No Abnormalities,Neck/Airway: No Abnormalities,LUNG SOUNDS:General: Nausea,Left Upper: No Abnormalities,Right Upper: No Abnormalities,Left Lower: No Abnormalities,Right Lower: No Abnormalities,ABDOMEN:General: Nausea,Left Upper: No Abnormalities,Right Upper: No Abnormalities,Left Lower: No Abnormalities,Right Lower: No Abnormalities,PELVIS//GI:No Abnormalities,EXTREMITIES:Left Arm: No Abnormalities,Right Arm: No Abnormalities,Left Leg: No Abnormalities,Right Leg: No Abnormalities,PULSE:NEURO:No Abnormalities, Impression Alcohol dependence with withdrawal Procedures @11:23Zofran - 4 Milligrams (mg) - OralResponse: Improved@11:06ALS AssessmentResponse: UnchangedSucceeded@11:233-Lead ECGResponse: UnchangedSucceeded [address] [address] EMS Patient Care Report Name: TOMI LAUGHLIN Room #: REG A[facility]#: [id number] Admission: 03/29/20 Attend Phys: Discharge: Date of : 70 Report #: [id number] Timeline 10:57,Call Received 10:57,Dispatch Notified 10:59,Dispatched 10:59,En Route 11:05,On Scene 11:06,At Patient 11:06,ALS Assessment,Response: UnchangedSucceeded, 11:08,BP: 153/88 M,PULSE: 95,RR: 16 R,SPO2: 97 Ox,ETCO2: ,B,PAIN: 0,GCS: 15, 11:10,Depart Scene 11:18,BP: 133/94 M,PULSE: 101,RR: 1 R,SPO2: 96 Ox,ETCO2: ,BG: ,PAIN: 0,GCS: 15, 11:23,3-Lead ECG,Response: UnchangedSucceeded, 11:23,Zofran - 4 Milligrams (mg) - Oral,Response: Improved 11:25,At Destination 11:41,Call Closed Disclaimer v1.1 Copyright 2020 [employer] This EMS Care Summary contains data elements from the applicable legal record (which may be displayed differently). It is designed to provide pertinent information for the following purposes: continuity of care, clinical quality, and state data reporting. The complete legal record is available to ED staff and administrators of the receiving hospital in [employer] Patient Tracker. All data is provided "as is."
[~2020-03-29 11:28] MED LIST changes: +CELEXA40 MG PO; +MAG-OXIDE400 MG PO
[2020-03-29] MEDS ORDERED: ESCITALOPRAM OX20 MG PO (11:35)
[2020-03-29] MEDS ORDERED: HYDROXYZINE HCL25 M2 PO (11:36)
[2020-03-29] MEDS ORDERED: ELIQUIS5 MG PO (11:37)
[2020-03-29 13:06] LABS: ABSOLUTE NEUTROPHILS 4.6 thou/uL (1.4-8.2); BASOPHILS 1.3 % (0.0-2.0); EOSINOPHILS 0.2 % (0.0-3.0); HEMATOCRIT 41.4 % (37.0-47.0); LYMPHOCYTES 17.1 % (24.0-44.0); MCH 32.1 pg (26.0-34.0); MCHC 33.8 g/dL (28.0-37.0); MONOCYTES 6.7 % (1.0-8.0); PLATELET COUNT 177 thou/uL (150-400); POLYS 74.7 % (36.0-66.0); RBC 4.36 mil/uL (4.20-5.00); RDW 15.5 % (10.5-14.5); WBC 6.2 thou/uL (4.0-11.0)
[2020-03-29 13:10] LABS: CALCIUM 9.2 mg/dL (8.5-10.1); CREATININE 0.7 mg/dL (0.6-1.0); POTASSIUM 3.8 mmol/L (3.5-5.1)
[2020-03-29 13:27] LABS: TOTAL BILIRUBIN 0.5 mg/dL (0.2-1.0); TOTAL PROTEIN 7.9 g/dL (6.4-8.2)
[2020-03-29 14:06] VITALS: BP 137/82
== END 2020-03-29 14:07 | disposition home or self-care (01) ==
LOC: ER 11:28
PROVIDERS: Physician Assistant
DX: F10.120 Alcohol abuse with intoxication, uncomplicated (principal); R11.2 Nausea with vomiting, unspecified; R25.1 Tremor, unspecified; R20.2 Paresthesia of skin; F17.210 Nicotine dependence, cigarettes, uncomplicated; Z86.718 Personal history of other venous thrombosis and embolism; Z90.49 Acquired absence of other specified parts of digestive tract; Z79.899 Other long term (current) drug therapy; Z88.5 Allergy status to narcotic agent; Y90.1 Blood alcohol level of 20-39 mg/100 ml